=== PATIENT | female | born 1955 | race American Indian/Alaskan Native ===

== ENCOUNTER 2021-02-18 09:56 | Inpatient (IN) | payer MEDICARE, OTHER ==
[2021-02-18] VITALS (18 sets, daily range): BP systolic 90–111; BP diastolic 40–64
[~2021-02-18] VITALS: Ht 162.6 cm; Wt 53.0 kg
[2021-02-18 10:54] LABS: BASOPHILS # (AUTO) 0.1 X10'3 (0-0.2); BASOPHILS % (AUTO) 0.4 % (0-1); EOSINOPHILS # (AUTO) 0.1 X10'3 (0-0.9); EOSINOPHILS % (AUTO) 0.4 % (0-6); HEMOGLOBIN 10.9 g/dl (12.0-16.0); MEAN CORPUSCULAR VOLUME 83.3 FL (78-98); MONOCYTES # (AUTO) 1.2 X10'3 (0-0.9)
[2021-02-18 10:56] LABS: LYMPHOCYTES # (AUTO) 2.8 X10'3 (1.1-4.8); LYMPHOCYTES % (AUTO) 12.9 % (21-51); MEAN CORPUSCULAR HEMOGLOBIN 27.4 PG (27.0-31.0); MEAN CORPUSCULAR HGB CONC 32.9 g/dL (33.0-36.5); MEAN PLATELET VOLUME 6.3 FL (7.4-10.4); MONOCYTES % (AUTO) 5.9 % (2-12); NEUTROPHILS # (AUTO) 17.1 X10'3 (1.8-7.7); NEUTROPHILS % (AUTO) 80.4 % (42-75); PLATELET COUNT 685 X10'3 (140-440); RED BLOOD COUNT 3.97 X10'6 (4.20-5.60); RED CELL DISTRIBUTION WIDTH 14.9 % (11.5-14.5); WHITE BLOOD COUNT 21.3 X10'3 (4.5-11.0)
[2021-02-18 11:13] LABS: ALANINE AMINOTRANSFERASE 25 U/L (12-78); ALBUMIN 2.5 G/DL (3.4-5.0); ALBUMIN/GLOBULIN RATIO 0.4 (1.1-1.5); ALKALINE PHOSPHATASE 88 IU/L (46-116); ANION GAP 10 (8-16); ASPARTATE AMINO TRANSFERASE 17 U/L (10-37); BILIRUBIN,TOTAL 0.5 MG/DL (0.1-1.0); BLOOD UREA NITROGEN 14 MG/DL (7-18); BUN/CREATININE RATIO 13.9 (6.6-38.0); CALCIUM 9.2 MG/DL (8.5-10.1); CHLORIDE 99 MMOL/L (99-107); CREATININE 1.01 MG/DL (0.40-0.90); GLUCOSE 145 MG/DL (70-104); LIPASE 69 U/L (73-393); POTASSIUM 3.2 MMOL/L (3.5-5.1); SODIUM 136 MMOL/L (135-145); TOTAL CARBON DIOXIDE 26.9 MMOL/L (24-32); TOTAL PROTEIN 8.1 G/DL (6.4-8.2); eGFR 55 ML/MIN
[2021-02-18 11:14] LABS: PLATELET ESTIMATE INCREASED; TOTAL CELLS COUNTED 100
[2021-02-18 11:29] LABS: CLARITY,URINE TURBID (Clear); COLOR,URINE ORANGE (Yellow)
[2021-02-18 11:37] LABS: UA COLLECTION TYPE CLN CATCH MIDSTREAM
[2021-02-18 11:40] LABS: BACTERIA,URINE 3+ /HPF (Neg); CAL OXALATE CRYSTALS 1+ /HPF (NEGATIVE); WBC,URINE TNTC /HPF (0-4)
[2021-02-18 11:41] LABS: SQUAMOUS EPITHELIAL CELL,UR MODERATE /LPF (FEW)
[2021-02-18] MEDS ORDERED: iohexol 300mg/ml 100ml inj. ONE (12:22)
[2021-02-18] MEDS ORDERED: ondansetron/PF 4mg/2ml inj IV ONE (12:30)
[2021-02-18] MEDS ORDERED: morphine 4 MG/ML inj SYRINge IV ONE (12:30)
[2021-02-18] MEDS ORDERED: piperacillin/tazo 3.375gm/50ml 50 ML IV ONE (13:35)
[2021-02-18] MEDS ORDERED: normal saline 1000ml 1,000 ML IVB ONE ×2 (13:40)
[2021-02-18] MEDS ORDERED: mag hydrox/Alum hydrox/simeth 30ml oral suspension PO PRN (14:40)
[2021-02-18] MEDS ORDERED: morphine 2 MG/ML inj. syringe IV PRN ×2 (14:40→18:45)
[2021-02-18] MEDS ORDERED: acetaminophen 325mg tablet PO PRN ×2 (14:40)
[2021-02-18] MEDS ORDERED: HYDROcodone/acetaminophen 10/325mg tab PO PRN (14:40)
[2021-02-18] MEDS ORDERED: ondansetron/PF 4mg/2ml inj IV PRN ×2 (14:40→18:45)
[2021-02-18] MEDS ORDERED: HYDROcodone/acetaminophen 5mg/325mg tablet PO PRN (14:40)
[2021-02-18] MEDS ORDERED: magnesium hydroxide 30ml (MOM) UD suspension PO PRN (14:40)
[2021-02-18] MEDS ORDERED: NO HOME MEDS (15:06)
[2021-02-18] MEDS ORDERED: CIPR-259 PO (15:06)
[2021-02-18] MEDS ORDERED: PHEN-716 PO (15:06)
[2021-02-18] MEDS: piperacillin/tazo 4.5gm/100ml 100 ML IV SCH (15:41)
--- NOTE | 2021-02-18 15:51 | NUR ---
covid swab test taken
[2021-02-18] MEDS: normal saline 1000ml 1,000 ML IV SCH (16:18)
[2021-02-18] MEDS ORDERED: BUPIVAcaine 0.5% inj/PF 30 ML ONE (17:28)
[2021-02-18] MEDS ORDERED: LIDOcaine 1% 30ml preserv. free vial ONE (17:28)
[2021-02-18] MEDS ORDERED: rocuronium 10mg/ml inj IV ONE ×2 (17:46→17:48)
[2021-02-18] MEDS ORDERED: fentaNYL/PF 50MCG/1 ML 2ML syringe ONE (17:46)
[2021-02-18] MEDS ORDERED: propofol inj 20 ML IV ONE ×2 (17:46→17:48)
[2021-02-18] MEDS ORDERED: LIDOcaine 2% (20mg/ml) 5ml vial ONE ×2 (17:46→17:48)
[2021-02-18] MEDS ORDERED: midazolam 1 mg/ML 2ml injection ONE (17:47)
[2021-02-18] MEDS ORDERED: sevoflurane 250ml liquid IH ONE (18:00)
[2021-02-18] MEDS ORDERED: dexamethasone sod phosphate 4mg/ml inj. ONE (18:23)
[2021-02-18] MEDS ORDERED: ondansetron/PF 4mg/2ml inj ONE (18:23)
[2021-02-18] MEDS ORDERED: sugammadex 200mg/2ml injection IV ONE (18:23)
--- NOTE | 2021-02-18 18:32 | NUR ---
Received from OR via BED, accompanied by Anesthesiologist DR ROSSI and report given by Anesthesiologist. PT DROWSY, DENIES PAIN, ABDOMEN W/ABD PAD COVERING INCISION PACKED W/WET TO DRY DRSG CDI, ARAGON CATHETER TO GRAVITY DRAINAGE BROWN W/LARGE SEDIMENT IN DRAINAGE BAG. Addendum: 02/18/21 at 1909 by Kimberly Gavin RN Amended: Links added.
[2021-02-18] MEDS ORDERED: ringers solution, lacted 1,000 ML IV SCH (18:45)
[2021-02-18] MEDS ORDERED: meperidine/PF 25mg/ml syringe IV PRN ×3 (18:45)
[2021-02-18] MEDS ORDERED: morphine 4 MG/ML inj SYRINge IV PRN (18:45)
[2021-02-18] MEDS ORDERED: proCHLORperazine 10 MG/2 ml inj IV PRN (18:45)
[2021-02-18] MEDS ORDERED: phenylephrine 10mg/ml inj. ONE (18:54)
[2021-02-18] MEDS: docusate sod 100mg capsule PO SCH (20:00)
--- NOTE | 2021-02-18 20:22 | NUR ---
Report called to receiving nurse. Transferred via BED, 1 BAG OF Belongings SENT W/PT TO ROOM 302, [facility], CALL LIGHT GIVEN, SIDE RAILS UP X 2, RECEIVING RN AT BEDSIDE TO RECEIVE PT. Special Issues communicated to receiving nurse. YES. Addendum: 02/18/21 at 2034 by Kimberly Gavin RN Amended: Links added.
--- NOTE | 2021-02-18 20:28 | NUR ---
RECEIVED PT FROM RECOVERY ON BED. PT AWAKE, COGNIZANT. PLEASANT. NO C/O PAIN.
[2021-02-19] MEDS: piperacillin/tazo 4.5gm/100ml 100 ML IV SCH ×3 (00:32→17:03)
[2021-02-19 02:00] VITALS: BP 90/41
[2021-02-19 06:14] LABS: BASOPHILS % (AUTO) 0.2 % (0-1); EOSINOPHILS % (AUTO) 0 % (0-6); HEMATOCRIT 26.3 % (35.0-45.0); HEMOGLOBIN 8.5 g/dl (12.0-16.0); LYMPHOCYTES # (AUTO) 1.3 X10'3 (1.1-4.8); LYMPHOCYTES % (AUTO) 10.3 % (21-51); MEAN CORPUSCULAR HEMOGLOBIN 27.1 PG (27.0-31.0); MEAN CORPUSCULAR HGB CONC 32.2 g/dL (33.0-36.5); MEAN CORPUSCULAR VOLUME 83.9 FL (78-98); MEAN PLATELET VOLUME 6.6 FL (7.4-10.4); MONOCYTES # (AUTO) 0.4 X10'3 (0-0.9); MONOCYTES % (AUTO) 3.5 % (2-12); NEUTROPHILS # (AUTO) 10.5 X10'3 (1.8-7.7); PLATELET COUNT 471 X10'3 (140-440); RED BLOOD COUNT 3.14 X10'6 (4.20-5.60); RED CELL DISTRIBUTION WIDTH 15.2 % (11.5-14.5); WHITE BLOOD COUNT 12.2 X10'3 (4.5-11.0)
--- NOTE | 2021-02-19 06:20 | NUR ---
Patient in room PCU 3021. I have received report from Tano HUITRON and had the opportunity to ask questions and assume patient care.
[2021-02-19 06:29] LABS: ALBUMIN 2.2 G/DL (3.4-5.0); ANION GAP 8 (8-16); BLOOD UREA NITROGEN 9 MG/DL (7-18); BUN/CREATININE RATIO 12.9 (6.6-38.0); CALCIUM 8.1 MG/DL (8.5-10.1); CHLORIDE 113 MMOL/L (99-107); GLUCOSE 135 MG/DL (70-104); SODIUM 144 MMOL/L (135-145); TOTAL CARBON DIOXIDE 22.8 MMOL/L (24-32); eGFR 84 ML/MIN
[2021-02-19 07:00] VITALS: BP 93/55
[2021-02-19] MEDS: normal saline 1000ml 1,000 ML IV SCH ×3 (07:12→20:40)
[2021-02-19] MEDS: enoxaparin 40mg/0.4ml syringe SQ SCH (07:13)
[2021-02-19] MEDS: morphine 2 MG/ML inj. syringe IV PRN ×2 (07:13→12:37)
[2021-02-19] MEDS: docusate sod 100mg capsule PO SCH ×2 (07:14→20:38)
[2021-02-19 11:00] VITALS: BP 94/49
--- NOTE | 2021-02-19 14:02 | NUR ---
Nutrition consult re: "diverticulitis, with subsequent fistula abscess into bladder". 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 Pt s/p I&D 02/18. Per [facility] notes surgical wound is full thickness with no signs of infection. Pt seen at bedside provided with written and verbal high protein and diverticulitis nutrition therapy educations with a list of fiber content in foods. All of patient's questions were answered at this time. RD contact information provided and pt encouraged to reach out if needed for further questions. Pt endorses a great appetite though reports she is hesitant to eat as she was unsure of what she could eat. RD d/w RN recommendation for diet change to low fiber/low residue. Pt states she drinks boost BID at home. RD provided pt with ONS coupons. Will monitor trends in PO intake and need for ONS during admit. Pt denies food allergies or difficulty chewing/swallowing. Will continue to follow. Recommendations: 1) Diet change to low fiber/low residue 2) Monitor need for additional protein/ONS 3) Bowel care per rx 4) Scaled weight this admit; weekly scaled weights thereafter Addendum: 02/19/21 at [address] Amended: Links added.
[2021-02-19 15:00] VITALS: BP 95/52
[2021-02-19 19:00] VITALS: BP 108/58
[2021-02-19] MEDS: lactobacillus rhamnosus 10,000 MMU CELLS/CAPSULE PO SCH (20:38)
[2021-02-19] MEDS: HYDROcodone/acetaminophen 10/325mg tab PO PRN (20:39)
[2021-02-19 23:00] VITALS: BP 95/54
[2021-02-20 06:00] VITALS: BP 113/55
--- NOTE | 2021-02-20 06:10 | NUR ---
Patient in room PCU 3021. I have received report from Alicia HUITRON and had the opportunity to ask questions and assume patient care.
[2021-02-20 06:28] LABS: BASOPHILS % (AUTO) 0.5 % (0-1); EOSINOPHILS # (AUTO) 0.2 X10'3 (0-0.9); HEMATOCRIT 26.2 % (35.0-45.0); HEMOGLOBIN 8.4 g/dl (12.0-16.0); LYMPHOCYTES # (AUTO) 3.8 X10'3 (1.1-4.8); MEAN CORPUSCULAR HEMOGLOBIN 27.4 PG (27.0-31.0); MEAN CORPUSCULAR HGB CONC 32.1 g/dL (33.0-36.5); MEAN CORPUSCULAR VOLUME 85.4 FL (78-98); MEAN PLATELET VOLUME 6.6 FL (7.4-10.4); MONOCYTES # (AUTO) 0.7 X10'3 (0-0.9); MONOCYTES % (AUTO) 7.2 % (2-12); NEUTROPHILS # (AUTO) 4.4 X10'3 (1.8-7.7); NEUTROPHILS % (AUTO) 48.3 % (42-75); PLATELET COUNT 453 X10'3 (140-440); RED BLOOD COUNT 3.07 X10'6 (4.20-5.60); RED CELL DISTRIBUTION WIDTH 15.2 % (11.5-14.5); WHITE BLOOD COUNT 9.1 X10'3 (4.5-11.0)
--- NOTE | 2021-02-20 06:29 | NUR ---
Problems reprioritized. Patient report given, questions answered & plan of care reviewed with Milad RN and Yesi HUITRON.
--- NOTE | 2021-02-20 06:39 | NUR ---
Patient in room PCU 3021. I have received report from ELIZABETH HUITRON and had the opportunity to ask questions and assume patient care. PT AWAKE DURING RESORT.
[2021-02-20] MEDS: normal saline 1000ml 1,000 ML IV SCH ×2 (06:40→16:27)
[2021-02-20 06:50] LABS: ANION GAP 8 (8-16); BLOOD UREA NITROGEN 13 MG/DL (7-18); BUN/CREATININE RATIO 14.3 (6.6-38.0); CALCIUM 8.3 MG/DL (8.5-10.1); CHLORIDE 113 MMOL/L (99-107); CREATININE 0.91 MG/DL (0.40-0.90); GLUCOSE 89 MG/DL (70-104); SODIUM 145 MMOL/L (135-145); TOTAL CARBON DIOXIDE 24.2 MMOL/L (24-32); eGFR 62 ML/MIN
[2021-02-20] MEDS ORDERED: potassium Cl 20 mEq SR tablet PO PRN (07:00)
[2021-02-20] MEDS ORDERED: magnesium Cl slow-release 64mg tablet PO PRN (07:00)
[2021-02-20] MEDS ORDERED: magnesium 4gm in 100ml NS 100 ML IV PRN (07:00)
[2021-02-20] MEDS ORDERED: potassium Cl 40MEQ/1/2NS 520ml 520 ML IV PRN (07:00)
[2021-02-20] MEDS: docusate sod 100mg capsule PO SCH ×2 (08:03→20:00)
[2021-02-20] MEDS: lactobacillus rhamnosus 10,000 MMU CELLS/CAPSULE PO SCH ×2 (08:03→21:53)
[2021-02-20] MEDS: potassium Cl 20 mEq SR tablet PO PRN ×3 (08:05→21:54)
[2021-02-20] MEDS: enoxaparin 40mg/0.4ml syringe SQ SCH (08:06)
[2021-02-20] MEDS: piperacillin/tazo 4.5gm/100ml 100 ML IV SCH ×3 (08:06→16:24)
[2021-02-20] MEDS: K and/or MAG REPLACEMENT MC SCH ×2 (08:14→20:00)
[2021-02-20 08:15] LABS: MAGNESIUM 2.1 MG/DL (1.5-2.4)
[2021-02-20 11:00] VITALS: BP 114/61
[2021-02-20] MEDS: HYDROcodone/acetaminophen 10/325mg tab PO PRN ×2 (11:44→21:55)
[2021-02-20 15:00] VITALS: BP 118/62
--- NOTE | 2021-02-20 16:20 | NUR ---
paged onielo PAGER ID: [phone] MESSAGE: ROOM 3021 PT has a red rash on the neck, complains of it itching. can we get an order for Benedryl? thank you, Yesi HUITRON [phone]
[2021-02-20] MEDS ORDERED: PEG 3350/Na sulf,bicarb,Cl/KCl oral sol 4 liter bottle PO ONE (17:15)
[2021-02-20] MEDS: diphenhydrAMINE 25mg capsule PO PRN (17:52)
[2021-02-20 18:00] VITALS: BP 137/66
--- NOTE | 2021-02-20 18:18 | NUR ---
Problems reprioritized. Patient report given, questions answered & plan of care reviewed with Yaima HUITRON.
--- NOTE | 2021-02-20 19:07 | NUR ---
Patient in room PCU 3021. I have received report from Yesi HUITRON and had the opportunity to ask questions and assume patient care.
[2021-02-20 22:00] VITALS: BP 124/67
[2021-02-21] VITALS (10 sets, daily range): BP systolic 11–142; BP diastolic 54–83
[2021-02-21] MEDS: piperacillin/tazo 4.5gm/100ml 100 ML IV SCH ×4 (00:41→23:18)
[2021-02-21] MEDS: normal saline 1000ml 1,000 ML IV SCH ×3 (03:27→15:29)
--- NOTE | 2021-02-21 06:05 | NUR ---
Patient in room PCU 3021. I have received report from Yaima HUITRON and had the opportunity to ask questions and assume patient care.
[2021-02-21 06:12] LABS: BASOPHILS % (AUTO) 0.4 % (0-1); EOSINOPHILS # (AUTO) 0.2 X10'3 (0-0.9); HEMATOCRIT 29.4 % (35.0-45.0); HEMOGLOBIN 9.4 g/dl (12.0-16.0); LYMPHOCYTES % (AUTO) 16.8 % (21-51); MEAN CORPUSCULAR HEMOGLOBIN 26.9 PG (27.0-31.0); MEAN PLATELET VOLUME 6.7 FL (7.4-10.4); MONOCYTES # (AUTO) 0.8 X10'3 (0-0.9); MONOCYTES % (AUTO) 6.4 % (2-12); NEUTROPHILS # (AUTO) 8.8 X10'3 (1.8-7.7); NEUTROPHILS % (AUTO) 74.4 % (42-75); PLATELET COUNT 503 X10'3 (140-440); WHITE BLOOD COUNT 11.9 X10'3 (4.5-11.0)
[2021-02-21 06:22] LABS: ALBUMIN 2.2 G/DL (3.4-5.0); ANION GAP 8 (8-16); BLOOD UREA NITROGEN 4 MG/DL (7-18); BUN/CREATININE RATIO 5.6 (6.6-38.0); CALCIUM 8.2 MG/DL (8.5-10.1); CHLORIDE 109 MMOL/L (99-107); CREATININE 0.72 MG/DL (0.40-0.90); GLUCOSE 100 MG/DL (70-104); MAGNESIUM 1.7 MG/DL (1.5-2.4); POTASSIUM 3.7 MMOL/L (3.5-5.1); SODIUM 139 MMOL/L (135-145); TOTAL CARBON DIOXIDE 22.5 MMOL/L (24-32); eGFR 81 ML/MIN
[2021-02-21] MEDS: lactobacillus rhamnosus 10,000 MMU CELLS/CAPSULE PO SCH ×2 (07:02→19:07)
[2021-02-21] MEDS: docusate sod 100mg capsule PO SCH ×2 (08:00→19:13)
[2021-02-21] MEDS: K and/or MAG REPLACEMENT MC SCH ×2 (08:00→19:12)
--- NOTE | 2021-02-21 08:02 | NUR ---
Problems reprioritized. Patient report given, questions answered & plan of care reviewed with Yesi HUITRON.
[2021-02-21] MEDS ORDERED: fentaNYL/PF 50MCG/1 ML 2ML syringe ONE (09:25)
[2021-02-21] MEDS ORDERED: MIDAZolam 1 MG/ML 5ML VIAL ONE (09:25)
--- NOTE | 2021-02-21 10:12 | NUR ---
Malnutrition consult: Pt reports 14-23 lb wt loss with decreased appetite per malnutrition risk screen with RN. During RD bedside visit pt reported 20 lb wt loss since December, stating she weighed ~138 lbs in December with current wt being ~118 lbs. Current documented wt in EMR is 116 lbs however isn't scaled though pt with scaled wt hx of 120 lbs taken 01/25. Pt reports drinking Boost BID at home for additional nutrition and reports a great appetite. Pt currently NPO pending colonoscopy however prior to NPO status pt was eating well, initially with average 50% PO intake while on a regular diet though once diet was appropriately changed to low fiber pt was with 75-100% PO intake. No visible fat or muscle wasting noted during RD visit. Pt with no documented significant decrease in muscle strength or edema. Pt currently lacks a minimum of two criteria for malnutrition. Will continue to follow. Addendum: 02/21/21 at [address] Amended: Links added.
[2021-02-21] MEDS: diphenhydrAMINE 25mg capsule PO PRN (15:20)
[2021-02-21] MEDS: HYDROcodone/acetaminophen 10/325mg tab PO PRN (19:08)
[2021-02-22] MEDS: normal saline 1000ml 1,000 ML IV SCH ×2 (01:00→18:40)
[2021-02-22 02:00] VITALS: BP 103/55
--- NOTE | 2021-02-22 06:30 | NUR ---
Patient in room PCU 3021. I have received report from TOMY Simental and had the opportunity to ask questions and assume patient care.
--- NOTE | 2021-02-22 06:57 | NUR ---
Patient in room PCU 3021. I have received report from Alona HUITRON and had the opportunity to ask questions and assume patient care.
[2021-02-22 07:00] VITALS: BP 115/58
[2021-02-22 07:28] LABS: BASOPHILS # (AUTO) 0.1 X10'3 (0-0.2); BASOPHILS % (AUTO) 0.8 % (0-1); EOSINOPHILS # (AUTO) 0.5 X10'3 (0-0.9); EOSINOPHILS % (AUTO) 4.1 % (0-6); HEMATOCRIT 30.4 % (35.0-45.0); LYMPHOCYTES # (AUTO) 2.8 X10'3 (1.1-4.8); LYMPHOCYTES % (AUTO) 23.6 % (21-51); MEAN CORPUSCULAR HEMOGLOBIN 27.5 PG (27.0-31.0); MEAN CORPUSCULAR HGB CONC 32.9 g/dL (33.0-36.5); MEAN CORPUSCULAR VOLUME 83.7 FL (78-98); MEAN PLATELET VOLUME 6.9 FL (7.4-10.4); MONOCYTES # (AUTO) 0.6 X10'3 (0-0.9); NEUTROPHILS # (AUTO) 7.8 X10'3 (1.8-7.7); NEUTROPHILS % (AUTO) 66.5 % (42-75); PLATELET COUNT 457 X10'3 (140-440); RED BLOOD COUNT 3.63 X10'6 (4.20-5.60); RED CELL DISTRIBUTION WIDTH 14.9 % (11.5-14.5); WHITE BLOOD COUNT 11.8 X10'3 (4.5-11.0)
[2021-02-22 07:45] LABS: ALBUMIN 2.2 G/DL (3.4-5.0); ANION GAP 9 (8-16); BLOOD UREA NITROGEN 3 MG/DL (7-18); BUN/CREATININE RATIO 3.7 (6.6-38.0); CALCIUM 8.7 MG/DL (8.5-10.1); CHLORIDE 112 MMOL/L (99-107); CREATININE 0.81 MG/DL (0.40-0.90); GLUCOSE 89 MG/DL (70-104); MAGNESIUM 2.1 MG/DL (1.5-2.4); POTASSIUM 3.7 MMOL/L (3.5-5.1); SODIUM 145 MMOL/L (135-145); eGFR 71 ML/MIN
[2021-02-22] MEDS: piperacillin/tazo 4.5gm/100ml 100 ML IV SCH ×2 (07:46→15:27)
[2021-02-22] MEDS: lactobacillus rhamnosus 10,000 MMU CELLS/CAPSULE PO SCH ×2 (07:46→20:50)
[2021-02-22] MEDS: docusate sod 100mg capsule PO SCH ×2 (08:00→20:00)
[2021-02-22] MEDS: K and/or MAG REPLACEMENT MC SCH ×2 (08:00→20:00)
[2021-02-22 11:30] VITALS: BP 115/56
--- NOTE | 2021-02-22 12:45 | NUR ---
Spoke with Dr. Guerra regarding patient, she has had a rash and the benadryl is not seeming to help. The rash is present on right side of neck and under left breast. Nystatin and hydrocortisone ordered.
--- NOTE | 2021-02-22 13:04 | NUR ---
PAGER ID: [phone] MESSAGE: [phone] Barney, just had some messi red blood in her stool. Is not on thinners and had a colonoscopy yesterday. olimpia [id number]
[2021-02-22] MEDS: nystatin 15 GM ointment TP SCH ×2 (15:27→20:56)
[2021-02-22] MEDS: HYDROcodone/acetaminophen 5mg/325mg tablet PO PRN ×2 (15:27→20:50)
[2021-02-22] MEDS: hydrocortisone 1% cream 28gm TP SCH ×2 (15:27→21:00)
[2021-02-22 16:12] VITALS: BP 115/60
--- NOTE | 2021-02-22 16:18 | NUR ---
PAGER ID: [phone] MESSAGE: [id number] MONIKA Corley patient has had 2 more episodes of messi red blood in stool, sent page earlier regarding this. olimpia [id number] Addendum: 02/22/21 at 1658 by Olimpia Westfall RN Dr. Guerra gave orders for Q6 hemograms
[2021-02-22 17:05] LABS: HEMATOCRIT 28.4 % (35.0-45.0); HEMOGLOBIN 9.1 g/dl (12.0-16.0); MEAN CORPUSCULAR HEMOGLOBIN 26.9 PG (27.0-31.0); MEAN CORPUSCULAR VOLUME 84.1 FL (78-98); MEAN PLATELET VOLUME 6.8 FL (7.4-10.4); PLATELET COUNT 474 X10'3 (140-440); RED BLOOD COUNT 3.38 X10'6 (4.20-5.60); WHITE BLOOD COUNT 13.5 X10'3 (4.5-11.0)
--- NOTE | 2021-02-22 18:12 | NUR ---
Problems reprioritized. Patient report given, questions answered & plan of care reviewed with Lizett HUITRON.
--- NOTE | 2021-02-22 18:14 | NUR ---
Patient in room PCU 3021. I have received report from TOMY Collier and had the opportunity to ask questions and assume patient care.
[2021-02-22 20:00] VITALS: BP 141/65
[2021-02-22 22:00] VITALS: BP 120/65
[2021-02-22 23:09] LABS: HEMATOCRIT 27.6 % (35.0-45.0); HEMOGLOBIN 9.4 g/dl (12.0-16.0); MEAN CORPUSCULAR HEMOGLOBIN 28.2 PG (27.0-31.0); MEAN CORPUSCULAR HGB CONC 33.9 g/dL (33.0-36.5); MEAN CORPUSCULAR VOLUME 83.3 FL (78-98); MEAN PLATELET VOLUME 6.7 FL (7.4-10.4); PLATELET COUNT 450 X10'3 (140-440); RED BLOOD COUNT 3.32 X10'6 (4.20-5.60); RED CELL DISTRIBUTION WIDTH 14.9 % (11.5-14.5); WHITE BLOOD COUNT 10.4 X10'3 (4.5-11.0)
[2021-02-23] MEDS: piperacillin/tazo 4.5gm/100ml 100 ML IV SCH ×3 (00:09→16:26)
[2021-02-23 02:48] VITALS: BP 134/71
[2021-02-23] MEDS: normal saline 1000ml 1,000 ML IV SCH ×3 (04:40→18:57)
--- NOTE | 2021-02-23 06:10 | NUR ---
Problems reprioritized. Patient report given, questions answered & plan of care reviewed with Aftab RN.
--- NOTE | 2021-02-23 06:34 | NUR ---
Patient in room PCU 3021. I have received report from MY HUITRON and had the opportunity to ask questions and assume patient care.
[2021-02-23 06:50] LABS: BASOPHILS # (AUTO) 0.1 X10'3 (0-0.2); BASOPHILS % (AUTO) 0.9 % (0-1); EOSINOPHILS # (AUTO) 0.5 X10'3 (0-0.9); EOSINOPHILS % (AUTO) 4.6 % (0-6); HEMATOCRIT 32.6 % (35.0-45.0); HEMOGLOBIN 10.5 g/dl (12.0-16.0); LYMPHOCYTES # (AUTO) 2.6 X10'3 (1.1-4.8); MEAN CORPUSCULAR HEMOGLOBIN 27.4 PG (27.0-31.0); MEAN CORPUSCULAR HGB CONC 32.3 g/dL (33.0-36.5); MEAN CORPUSCULAR VOLUME 84.9 FL (78-98); MEAN PLATELET VOLUME 6.9 FL (7.4-10.4); MONOCYTES # (AUTO) 0.6 X10'3 (0-0.9); MONOCYTES % (AUTO) 6.1 % (2-12); NEUTROPHILS # (AUTO) 6.2 X10'3 (1.8-7.7); NEUTROPHILS % (AUTO) 62.4 % (42-75); PLATELET COUNT 517 X10'3 (140-440); RED BLOOD COUNT 3.84 X10'6 (4.20-5.60); RED CELL DISTRIBUTION WIDTH 15.2 % (11.5-14.5); WHITE BLOOD COUNT 9.9 X10'3 (4.5-11.0)
[2021-02-23 06:58] LABS: ALBUMIN 2.4 G/DL (3.4-5.0); ANION GAP 10 (8-16); BLOOD UREA NITROGEN 2 MG/DL (7-18); BUN/CREATININE RATIO 2.5 (6.6-38.0); CALCIUM 8.6 MG/DL (8.5-10.1); CHLORIDE 111 MMOL/L (99-107); GLUCOSE 95 MG/DL (70-104); POTASSIUM 3.3 MMOL/L (3.5-5.1); SODIUM 144 MMOL/L (135-145); TOTAL CARBON DIOXIDE 22.8 MMOL/L (24-32); eGFR 72 ML/MIN
[2021-02-23 07:00] VITALS: BP 133/70
--- NOTE | 2021-02-23 07:07 | NUR ---
Patient in room PCU 3021. I have received report from TOMY Phoenix and had the opportunity to ask questions and assume patient care.
[2021-02-23] MEDS: docusate sod 100mg capsule PO SCH ×2 (08:00→20:00)
[2021-02-23] MEDS: K and/or MAG REPLACEMENT MC SCH ×2 (08:00→20:00)
[2021-02-23] MEDS: hydrocortisone 1% cream 28gm TP SCH ×3 (08:17→22:21)
[2021-02-23] MEDS: nystatin 15 GM ointment TP SCH ×3 (08:20→22:22)
[2021-02-23] MEDS: lactobacillus rhamnosus 10,000 MMU CELLS/CAPSULE PO SCH ×2 (08:20→20:20)
[2021-02-23 10:24] LABS: HEMATOCRIT 29.5 % (35.0-45.0); HEMOGLOBIN 9.3 g/dl (12.0-16.0); MEAN CORPUSCULAR HEMOGLOBIN 26.4 PG (27.0-31.0); MEAN CORPUSCULAR HGB CONC 31.5 g/dL (33.0-36.5); MEAN CORPUSCULAR VOLUME 83.9 FL (78-98); MEAN PLATELET VOLUME 6.8 FL (7.4-10.4); PLATELET COUNT 480 X10'3 (140-440); RED BLOOD COUNT 3.52 X10'6 (4.20-5.60); RED CELL DISTRIBUTION WIDTH 15.3 % (11.5-14.5); WHITE BLOOD COUNT 12.6 X10'3 (4.5-11.0)
[2021-02-23 11:00] VITALS: BP 154/71
[2021-02-23] MEDS ORDERED: potassium Cl 40MEQ/1/2NS 520ml 520 ML IV PRN (11:15)
[2021-02-23] MEDS ORDERED: magnesium Cl slow-release 64mg tablet PO PRN (11:15)
[2021-02-23] MEDS ORDERED: magnesium 4gm in 100ml NS 100 ML IV PRN (11:15)
[2021-02-23] MEDS ORDERED: potassium Cl 20 mEq SR tablet PO PRN (11:15)
[2021-02-23] MEDS: potassium Cl 20 mEq SR tablet PO PRN ×2 (12:13→17:02)
[2021-02-23] MEDS: HYDROcodone/acetaminophen 10/325mg tab PO PRN ×2 (12:16→20:20)
[2021-02-23 15:00] VITALS: BP 119/60
--- NOTE | 2021-02-23 16:03 | NUR ---
Reassessment: Pt regressed to clear liquids 02/21 from prior low-residue diet s/p I&D of cutaneous portions of colovesicular fistula per EMR. PO ~50% avg clears down from initial 75-100% first low-residue meals 02/20. To remain on clear liquids pending possible further surgery per MD note. LBM 02/22 w/ noted messi blood in BM's yesterday per EMR. RD recommends ensure clear given chance of prolonged restrictive diet; MD notified. Will monitor for diet advancement as medically indicated and additional protein needs post-op. Recommendations: 1) Continue clear liquids per MD; encourage PO 2) Advance to low fiber/low residue diet as medically indicated 3) Ensure Clear TIDWM given chance for prolonged clears (apple flavor to avoid red); pending MD verification in EMR 4) Bowel care per rx 5) Scaled weight this admit; weekly scaled weights thereafter Addendum: 02/23/21 at [address] Amended: Links added.
[2021-02-23 16:52] LABS: HEMATOCRIT 29.3 % (35.0-45.0); HEMOGLOBIN 9.3 g/dl (12.0-16.0); MEAN CORPUSCULAR HGB CONC 31.9 g/dL (33.0-36.5); MEAN CORPUSCULAR VOLUME 84.6 FL (78-98); MEAN PLATELET VOLUME 6.7 FL (7.4-10.4); PLATELET COUNT 466 X10'3 (140-440); RED BLOOD COUNT 3.47 X10'6 (4.20-5.60); RED CELL DISTRIBUTION WIDTH 14.9 % (11.5-14.5); WHITE BLOOD COUNT 11.6 X10'3 (4.5-11.0)
--- NOTE | 2021-02-23 17:32 | NUR ---
Problems reprioritized. Patient report given, questions answered & plan of care reviewed with Lizett HUITRON.
[2021-02-23 18:00] VITALS: BP 143/70
--- NOTE | 2021-02-23 18:00 | NUR ---
Patient in room [facility] 344. I have received report from TOMY Leyva and had the opportunity to ask questions and assume patient care.
[2021-02-23] MEDS: diphenhydrAMINE 25mg capsule PO PRN (20:20)
--- NOTE | 2021-02-23 20:26 | NUR ---
Dr. Hall in to see patient. Aware of rash.
[2021-02-23 22:48] LABS: HEMATOCRIT 28.4 % (35.0-45.0); HEMOGLOBIN 9.2 g/dl (12.0-16.0); MEAN CORPUSCULAR HEMOGLOBIN 27.5 PG (27.0-31.0); MEAN CORPUSCULAR HGB CONC 32.3 g/dL (33.0-36.5); MEAN PLATELET VOLUME 6.9 FL (7.4-10.4); PLATELET COUNT 471 X10'3 (140-440); RED BLOOD COUNT 3.35 X10'6 (4.20-5.60); RED CELL DISTRIBUTION WIDTH 15.1 % (11.5-14.5); WHITE BLOOD COUNT 10.5 X10'3 (4.5-11.0)
[2021-02-23 23:20] VITALS: BP 126/60
[2021-02-24] MEDS: piperacillin/tazo 4.5gm/100ml 100 ML IV SCH ×4 (00:50→23:20)
[2021-02-24] MEDS: potassium Cl 20 mEq SR tablet PO PRN (00:50)
[2021-02-24] MEDS: normal saline 1000ml 1,000 ML IV SCH ×3 (04:03→14:44)
[2021-02-24 06:03] LABS: BASOPHILS # (AUTO) 0.1 X10'3 (0-0.2); EOSINOPHILS # (AUTO) 0.5 X10'3 (0-0.9); EOSINOPHILS % (AUTO) 6.3 % (0-6); HEMATOCRIT 28.1 % (35.0-45.0); HEMOGLOBIN 9.1 g/dl (12.0-16.0); LYMPHOCYTES # (AUTO) 2.8 X10'3 (1.1-4.8); LYMPHOCYTES % (AUTO) 33.5 % (21-51); MEAN CORPUSCULAR HEMOGLOBIN 27.3 PG (27.0-31.0); MEAN CORPUSCULAR HGB CONC 32.3 g/dL (33.0-36.5); MEAN CORPUSCULAR VOLUME 84.5 FL (78-98); MONOCYTES # (AUTO) 0.6 X10'3 (0-0.9); MONOCYTES % (AUTO) 6.9 % (2-12); NEUTROPHILS # (AUTO) 4.4 X10'3 (1.8-7.7); NEUTROPHILS % (AUTO) 52.3 % (42-75); PLATELET COUNT 457 X10'3 (140-440); RED BLOOD COUNT 3.32 X10'6 (4.20-5.60); RED CELL DISTRIBUTION WIDTH 15.3 % (11.5-14.5); WHITE BLOOD COUNT 8.4 X10'3 (4.5-11.0)
[2021-02-24 06:11] LABS: ALBUMIN 2.1 G/DL (3.4-5.0); ANION GAP 9 (8-16); BLOOD UREA NITROGEN 2 MG/DL (7-18); BUN/CREATININE RATIO 2.5 (6.6-38.0); CALCIUM 8.4 MG/DL (8.5-10.1); CHLORIDE 113 MMOL/L (99-107); CREATININE 0.79 MG/DL (0.40-0.90); GLUCOSE 90 MG/DL (70-104); POTASSIUM 4.1 MMOL/L (3.5-5.1); SODIUM 145 MMOL/L (135-145); TOTAL CARBON DIOXIDE 23.2 MMOL/L (24-32); eGFR 73 ML/MIN
[2021-02-24 06:12] LABS: PARTIAL THROMBOPLASTIN TIME 26 SECONDS (22-32)
[2021-02-24 06:22] LABS: MAGNESIUM 2.1 MG/DL (1.5-2.4); POTASSIUM 4.1 MMOL/L (3.5-5.1)
[2021-02-24 07:00] VITALS: BP 121/64
[2021-02-24] MEDS: K and/or MAG REPLACEMENT MC SCH ×2 (08:00→18:57)
[2021-02-24] MEDS: NUT.TX.IMPAIRED DIGEST FXN (Ensure Clear) 237 ML PO SCH ×3 (08:00→18:00)
[2021-02-24] MEDS: docusate sod 100mg capsule PO SCH ×2 (08:00→19:36)
[2021-02-24] MEDS: hydrocortisone 1% cream 28gm TP SCH ×3 (08:00→21:00)
[2021-02-24] MEDS: lactobacillus rhamnosus 10,000 MMU CELLS/CAPSULE PO SCH ×2 (08:24→19:36)
[2021-02-24] MEDS: HYDROcodone/acetaminophen 10/325mg tab PO PRN ×2 (08:25→16:39)
[2021-02-24] MEDS: nystatin 15 GM ointment TP SCH (08:32)
[2021-02-24 09:00] VITALS: BP 155/98
[2021-02-24 10:26] LABS: HEMATOCRIT 28.7 % (35.0-45.0); HEMOGLOBIN 9.3 g/dl (12.0-16.0); MEAN CORPUSCULAR HEMOGLOBIN 27.5 PG (27.0-31.0); MEAN CORPUSCULAR HGB CONC 32.3 g/dL (33.0-36.5); MEAN CORPUSCULAR VOLUME 85.2 FL (78-98); MEAN PLATELET VOLUME 6.8 FL (7.4-10.4); PLATELET COUNT 477 X10'3 (140-440); RED BLOOD COUNT 3.36 X10'6 (4.20-5.60); RED CELL DISTRIBUTION WIDTH 15.4 % (11.5-14.5)
[2021-02-24] MEDS: diphenhydrAMINE 25mg capsule PO PRN (10:48)
--- NOTE | 2021-02-24 10:59 | NUR ---
PAGER ID: [phone] MESSAGE: Jyoti-Surg [phone] Re: Barney 344B patient has Q6H H&H and has been holding at 9.3.7 can we DC Q6H H&H no bleeding noted.
[2021-02-24 11:00] VITALS: BP 122/60
[2021-02-24] MEDS: nystatin 15 GM powder TP SCH ×2 (14:17→23:18)
[2021-02-24 18:00] VITALS: BP 134/71
--- NOTE | 2021-02-24 18:45 | NUR ---
Patient in room [facility] 344. I have received report from TOMY Montes and had the opportunity to ask questions and assume patient care.
--- NOTE | 2021-02-24 18:53 | NUR ---
Problems reprioritized. Patient report given, questions answered & plan of care reviewed with Luciana HUITRON.
[2021-02-25] VITALS (28 sets, daily range): BP systolic 103–139; BP diastolic 40–76
[2021-02-25] MEDS: normal saline 1000ml 1,000 ML IV SCH ×3 (01:38→22:24)
--- NOTE | 2021-02-25 06:30 | NUR ---
Problems reprioritized. Patient report given, questions answered & plan of care reviewed with TOMY Newberry.
[2021-02-25] MEDS: docusate sod 100mg capsule PO SCH ×2 (06:53→20:00)
[2021-02-25] MEDS: K and/or MAG REPLACEMENT MC SCH ×2 (06:53→21:00)
[2021-02-25] MEDS: hydrocortisone 1% cream 28gm TP SCH ×3 (08:00→21:00)
[2021-02-25] MEDS: NUT.TX.IMPAIRED DIGEST FXN (Ensure Clear) 237 ML PO SCH ×3 (08:00→18:00)
[2021-02-25] MEDS: lactobacillus rhamnosus 10,000 MMU CELLS/CAPSULE PO SCH ×2 (08:34→20:00)
[2021-02-25] MEDS: piperacillin/tazo 4.5gm/100ml 100 ML IV SCH ×2 (08:34→16:00)
[2021-02-25] MEDS: nystatin 15 GM powder TP SCH ×3 (08:35→22:27)
[2021-02-25] MEDS: HYDROcodone/acetaminophen 10/325mg tab PO PRN (08:35)
[2021-02-25 09:57] LABS: BASOPHILS # (AUTO) 0.1 X10'3 (0-0.2); BASOPHILS % (AUTO) 0.9 % (0-1); EOSINOPHILS # (AUTO) 0.4 X10'3 (0-0.9); EOSINOPHILS % (AUTO) 3.5 % (0-6); HEMATOCRIT 29.4 % (35.0-45.0); HEMOGLOBIN 9.6 g/dl (12.0-16.0); LYMPHOCYTES # (AUTO) 3.1 X10'3 (1.1-4.8); LYMPHOCYTES % (AUTO) 27.6 % (21-51); MEAN CORPUSCULAR HEMOGLOBIN 27.5 PG (27.0-31.0); MEAN CORPUSCULAR HGB CONC 32.7 g/dL (33.0-36.5); MEAN CORPUSCULAR VOLUME 84.2 FL (78-98); MEAN PLATELET VOLUME 6.7 FL (7.4-10.4); MONOCYTES # (AUTO) 0.8 X10'3 (0-0.9); MONOCYTES % (AUTO) 7.7 % (2-12); NEUTROPHILS # (AUTO) 6.7 X10'3 (1.8-7.7); NEUTROPHILS % (AUTO) 60.3 % (42-75); PLATELET COUNT 489 X10'3 (140-440); RED BLOOD COUNT 3.49 X10'6 (4.20-5.60); RED CELL DISTRIBUTION WIDTH 15.6 % (11.5-14.5); WHITE BLOOD COUNT 11.1 X10'3 (4.5-11.0)
[2021-02-25 10:15] LABS: ALBUMIN 2.3 G/DL (3.4-5.0); ALBUMIN/GLOBULIN RATIO 0.6 (1.1-1.5); ALKALINE PHOSPHATASE 75 IU/L (46-116); BLOOD UREA NITROGEN 2 MG/DL (7-18); BUN/CREATININE RATIO 2.2 (6.6-38.0); CALCIUM 8.2 MG/DL (8.5-10.1); CHLORIDE 110 MMOL/L (99-107); CREATININE 0.89 MG/DL (0.40-0.90); PRE OP ALT 24 U/L (30-65); PRE OP ANION GAP 12 (8-16); PRE OP AST 17 U/L (10-37); PRE OP BILIRUB, TOTAL 0.3 MG/DL (0.0-1.0); PRE OP GLUCOSE 125 MG/DL (70-104); PRE OP POTASSIUM 3.5 MMOL/L (3.4-5.1); PRE OP SODIUM 144 MMOL/L (135-145); TOTAL CARBON DIOXIDE 22.4 MMOL/L (24-32); TOTAL PROTEIN 6.1 G/DL (6.4-8.2); eGFR 64 ML/MIN
[2021-02-25] MEDS ORDERED: LIDOcaine 1% 30ml preserv. free vial ONE (11:44)
[2021-02-25] MEDS ORDERED: INDOCYANINE GREEN 25 MG/10 ML VIAL IV ONE (11:45)
[2021-02-25] MEDS ORDERED: BUPIVAcaine 0.5% inj/PF 30 ML ONE (11:46)
--- NOTE | 2021-02-25 11:59 | NUR ---
Called report to recovery. OR taking pt. now.
[2021-02-25] MEDS ORDERED: sevoflurane 250ml liquid IH ONE (12:22)
[2021-02-25] MEDS ORDERED: proCHLORperazine 10 MG/2 ml inj IV PRN (12:25)
[2021-02-25] MEDS ORDERED: morphine 4 MG/ML inj SYRINge IV PRN (12:25)
[2021-02-25] MEDS ORDERED: meperidine/PF 25mg/ml syringe IV PRN ×2 (12:25)
[2021-02-25] MEDS ORDERED: ringers solution, lacted 1,000 ML IV SCH (12:25)
[2021-02-25] MEDS ORDERED: morphine 2 MG/ML inj. syringe IV PRN (12:25)
[2021-02-25] MEDS ORDERED: ondansetron/PF 4mg/2ml inj IV PRN (12:25)
[2021-02-25] MEDS ORDERED: midazolam 1 mg/ML 2ml injection ONE (12:30)
[2021-02-25] MEDS ORDERED: fentaNYL /PF 50mcg/ml 5ml ampule ONE (12:31)
[2021-02-25] MEDS ORDERED: propofol inj 20 ML IV ONE (12:37)
[2021-02-25] MEDS ORDERED: LIDOcaine 2% (20mg/ml) 5ml vial ONE (12:37)
[2021-02-25] MEDS ORDERED: rocuronium 10mg/ml inj IV ONE ×2 (12:37→16:52)
[2021-02-25] MEDS ORDERED: dexamethasone sod phosphate 4mg/ml inj. ONE (12:38)
[2021-02-25] MEDS ORDERED: ondansetron/PF 4mg/2ml inj ONE (12:38)
[2021-02-25] MEDS ORDERED: morphine 4 MG/ML inj SYRINge ONE (15:59)
--- NOTE | 2021-02-25 16:37 | NUR ---
When calling in report to recovery, asked RN if I needed to send 1600 Zosyn dose with pt. RN replied "No. I don't think she will be down here that long." Pt. was taken to OR approximately at 12 from this floor. Just called recovery again as I have not received report on pt. Pt. is apparently still in the OR and recovery refused for primary RN to deliver IV ATB stating" That pt. isn't even here yet. They are in the OR and we can not give meds while they are in the OR. I would non-admin it if I were you." Pharmacist notified.
[2021-02-25] MEDS ORDERED: neostigmine methylsulfate 1 MG/ML 10ml vial ONE (17:00)
[2021-02-25] MEDS ORDERED: glycopyrrolate 0.2mg/ml inj ONE (17:00)
--- NOTE | 2021-02-25 17:20 | NUR ---
PT ARRIVED FROM OR VIA BED, DR HOGUE ANESTHESIOLOGIST ACCOMPANIED, REPORT GIVEN, PT WAKING UP, VSS, DENIES PAIN, 22G TO RLE-LR RUNNING 100ML/HR, F/C PRESENT-PLACED PRIOR TO SURGERY, DRAINING CLEAR YELLOW URINE, SCDS IN PLACE, BANDAIDS X 3 TO ABD-CDI, AND WOUND VAC TO LOWER MID ABD@125MMHG
[2021-02-25] MEDS: meperidine/PF 25mg/ml syringe IV PRN ×2 (17:47→18:19)
--- NOTE | 2021-02-25 18:15 | NUR ---
Gave report to Antoinette Curry RN.
[2021-02-25] MEDS ORDERED: acetaminophen 1,000mg/100ml IV 100 ML IV STA (18:23)
--- NOTE | 2021-02-25 18:30 | NUR ---
I have received report from CLAUDE HUITRON and had the opportunity to ask questions. PATIENT IN OR/ RECOVERY AT THIS TIME FOR SURGERY.
[2021-02-25] MEDS ORDERED: CADD PCA waste documentation MC SCH (18:50)
[2021-02-25] MEDS: ketorolac tromethamine 15mg/ml inj. IV SCH (18:55)
--- NOTE | 2021-02-25 18:55 | NUR ---
GIVEN IV TYLENOL AND 15MG IV TORADOL FOR CONT. INCISION PAIN 02/17 ATTEMPTING NON-NARCOTIC D/T TRENDING LOW BP AFTER DEMEROL.
[2021-02-25] MEDS ORDERED: morphine/NS 1 mg/ml 50ml CADD 50 ML IV SCH ×2 (19:30→21:50)
--- NOTE | 2021-02-25 20:05 | NUR ---
MORPHINE COMPUTATIONAL SCIENTIST CADD STARTED-PT EDUCATED, PAIN STILL TOLERABLE AT 5/10, VSS, DENIES N/V, LAP SITES X4 CDI, WOUND VAC-INTACT AT 125MMHG, F/C DRAINING, SCDS IN PLACE, REPORT CALLED TO EFRNANDEZ RN-ALL QUESTIONS ANSWERED, TAKEN BACK TO ROOM 344B, IN ROOM WITH PRIMARY RN TO ACCEPT PT, CALL LIGHT IN REACH, BED LOW AND LOCKED.
--- NOTE | 2021-02-25 20:20 | NUR ---
PATIENT BACK TO ROOM 344B FROM RECOVERY ROOM AFTER ROBOTIC LAP ASSISTED SIGMOID COLECTOMY WAS DONE BY DR. YAP. PLACED COMFORTABLE IN BED. VITAL SIGNS MONITORED PER POST OP PROTOCOL.
[2021-02-25] MEDS ORDERED: CADD PCA waste documentation MC PRN (21:50)
[2021-02-25] MEDS ORDERED: naloxone 0.4 mg/ml inj IV PRN (21:50)
[2021-02-25] MEDS: acetaminophen 325mg tablet PO SCH (22:18)
[2021-02-25] MEDS: morphine/NS 1 mg/ml 50ml CADD 50 ML IV SCH (23:00)
[2021-02-26] VITALS: BP_SYST 111; BP_SYST 97; BP_DIAS 51; BP_DIAS 52
[2021-02-26] MEDS: morphine/NS 1 mg/ml 50ml CADD 50 ML IV SCH ×12 (01:00→23:00)
[2021-02-26] MEDS: ketorolac tromethamine 15mg/ml inj. IV SCH ×3 (01:11→16:01)
[2021-02-26] MEDS: piperacillin/tazo 4.5gm/100ml 100 ML IV SCH ×3 (01:11→16:00)
[2021-02-26] MEDS: acetaminophen 325mg tablet PO SCH ×4 (02:00→20:32)
--- NOTE | 2021-02-26 06:30 | NUR ---
Problems reprioritized. Patient report given, questions answered & plan of care reviewed with DONALDO HUITRON.
[2021-02-26 07:00] VITALS: BP 97/51
[2021-02-26] MEDS: K and/or MAG REPLACEMENT MC SCH ×2 (08:00→20:00)
[2021-02-26] MEDS: NUT.TX.IMPAIRED DIGEST FXN (Ensure Clear) 237 ML PO SCH ×3 (08:00→19:00)
[2021-02-26] MEDS: hydrocortisone 1% cream 28gm TP SCH ×3 (08:00→20:38)
--- NOTE | 2021-02-26 08:14 | NUR ---
f/u 02/26. Pt s/p laparoscopic sigmoid colectomy 02/25. Pt was consuming about 50% of clear liquid diet prior to surgery and is currently on Clear liquids today. Ensure Clear verified in EMR though pt not receiving. Notified dietary to send ONS per rx. No N/V/D noted, LBM 02/25. Pt w/ surgical wounds on abdomen. Will continue to monitor for diet advancement as medically indicated. Recommendations: 1) Continue clear liquids per MD; encourage PO 2) Advance to low fiber/low residue diet as medically indicated 3) Ensure Clear TIDWM given chance for prolonged clears (apple flavor to avoid red) 4) Bowel care per rx 5) Scaled weight this admit; weekly scaled weights thereafter Addendum: 02/26/21 at [address] Amended: Links added.
[2021-02-26] MEDS: normal saline 1000ml 1,000 ML IV SCH ×2 (08:39→20:33)
[2021-02-26 08:52] LABS: BASOPHILS # (AUTO) 0.1 X10'3 (0-0.2); BASOPHILS % (AUTO) 0.6 % (0-1); EOSINOPHILS # (AUTO) 0.1 X10'3 (0-0.9); EOSINOPHILS % (AUTO) 0.7 % (0-6); HEMATOCRIT 30.6 % (35.0-45.0); HEMOGLOBIN 9.7 g/dl (12.0-16.0); LYMPHOCYTES # (AUTO) 3.4 X10'3 (1.1-4.8); LYMPHOCYTES % (AUTO) 24.2 % (21-51); MEAN CORPUSCULAR HEMOGLOBIN 27.7 PG (27.0-31.0); MEAN CORPUSCULAR HGB CONC 31.6 g/dL (33.0-36.5); MEAN CORPUSCULAR VOLUME 87.5 FL (78-98); MEAN PLATELET VOLUME 7.1 FL (7.4-10.4); MONOCYTES # (AUTO) 1.3 X10'3 (0-0.9); MONOCYTES % (AUTO) 9.2 % (2-12); NEUTROPHILS # (AUTO) 9.3 X10'3 (1.8-7.7); NEUTROPHILS % (AUTO) 65.3 % (42-75); PLATELET COUNT 450 X10'3 (140-440); RED CELL DISTRIBUTION WIDTH 16.6 % (11.5-14.5); WHITE BLOOD COUNT 14.2 X10'3 (4.5-11.0)
[2021-02-26] MEDS: lactobacillus rhamnosus 10,000 MMU CELLS/CAPSULE PO SCH ×2 (08:53→20:32)
[2021-02-26] MEDS: docusate sod 100mg capsule PO SCH ×2 (08:53→20:32)
[2021-02-26] MEDS: nystatin 15 GM powder TP SCH ×3 (08:54→20:36)
[2021-02-26 08:59] LABS: ALBUMIN 2.2 G/DL (3.4-5.0); ANION GAP 10 (8-16); BLOOD UREA NITROGEN 5 MG/DL (7-18); CALCIUM 8.4 MG/DL (8.5-10.1); CHLORIDE 111 MMOL/L (99-107); CREATININE 0.84 MG/DL (0.40-0.90); GLUCOSE 95 MG/DL (70-104); POTASSIUM 3.8 MMOL/L (3.5-5.1); SODIUM 145 MMOL/L (135-145); TOTAL CARBON DIOXIDE 23.7 MMOL/L (24-32); eGFR 68 ML/MIN
[2021-02-26 11:00] VITALS: BP 99/51
--- NOTE | 2021-02-26 18:24 | NUR ---
Problems reprioritized. Patient report given, questions answered & plan of care reviewed with TOMY Emmanuel.
[2021-02-26 20:00] VITALS: BP 121/60
[2021-02-27] VITALS: BP 158/82
[2021-02-27] MEDS: ketorolac tromethamine 15mg/ml inj. IV SCH ×4 (00:21→23:49)
[2021-02-27] MEDS: piperacillin/tazo 4.5gm/100ml 100 ML IV SCH ×4 (00:24→23:49)
[2021-02-27] MEDS: morphine/NS 1 mg/ml 50ml CADD 50 ML IV SCH ×12 (01:00→23:00)
[2021-02-27] MEDS: acetaminophen 325mg tablet PO SCH ×4 (02:00→20:49)
[2021-02-27 04:00] VITALS: BP 158/86
[2021-02-27 04:53] VITALS: BP 121/60
[2021-02-27] MEDS: normal saline 1000ml 1,000 ML IV SCH ×2 (06:11→16:42)
--- NOTE | 2021-02-27 06:30 | NUR ---
Problems reprioritized. Patient report given, questions answered & plan of care reviewed with DONALDO HUITRON.
--- NOTE | 2021-02-27 06:44 | NUR ---
Patient in room [facility] 344. I have received report from TOMY Emmanuel and had the opportunity to ask questions and assume patient care.
[2021-02-27 07:00] VITALS: BP 118/67
[2021-02-27] MEDS: docusate sod 100mg capsule PO SCH ×2 (07:55→20:00)
[2021-02-27] MEDS: lactobacillus rhamnosus 10,000 MMU CELLS/CAPSULE PO SCH ×2 (07:55→20:48)
[2021-02-27] MEDS: K and/or MAG REPLACEMENT MC SCH ×2 (08:00→20:00)
[2021-02-27] MEDS: NUT.TX.IMPAIRED DIGEST FXN (Ensure Clear) 237 ML PO SCH ×3 (08:00→18:00)
[2021-02-27] MEDS: hydrocortisone 1% cream 28gm TP SCH ×3 (08:00→20:50)
[2021-02-27] MEDS: nystatin 15 GM powder TP SCH ×3 (08:05→20:49)
[2021-02-27 11:00] VITALS: BP 128/61
[2021-02-27 18:00] VITALS: BP 145/54
--- NOTE | 2021-02-27 18:27 | NUR ---
Problems reprioritized. Patient report given, questions answered & plan of care reviewed with TOMY Piper.
--- NOTE | 2021-02-27 22:41 | NUR ---
Patient in room [facility] 344. I have received report from Sandra HUITRON and had the opportunity to ask questions and assume patient care.
[2021-02-28] VITALS: BP 122/64
[2021-02-28] MEDS: morphine/NS 1 mg/ml 50ml CADD 50 ML IV SCH ×6 (01:00→11:00)
[2021-02-28] MEDS: acetaminophen 325mg tablet PO SCH ×2 (02:00→08:02)
[2021-02-28] MEDS: normal saline 1000ml 1,000 ML IV SCH ×2 (04:40→10:49)
--- NOTE | 2021-02-28 06:28 | NUR ---
Problems reprioritized. Patient report given, questions answered & plan of care reviewed with Coni HUITRON.
[2021-02-28 07:00] VITALS: BP 138/66
[2021-02-28] MEDS: NUT.TX.IMPAIRED DIGEST FXN (Ensure Clear) 237 ML PO SCH (08:00)
[2021-02-28] MEDS: hydrocortisone 1% cream 28gm TP SCH ×3 (08:00→19:32)
[2021-02-28] MEDS: docusate sod 100mg capsule PO SCH (08:00)
[2021-02-28] MEDS: K and/or MAG REPLACEMENT MC SCH ×2 (08:00→19:16)
[2021-02-28] MEDS: piperacillin/tazo 4.5gm/100ml 100 ML IV SCH ×2 (08:02→16:58)
[2021-02-28] MEDS: lactobacillus rhamnosus 10,000 MMU CELLS/CAPSULE PO SCH ×2 (08:02→19:28)
[2021-02-28] MEDS: ketorolac tromethamine 15mg/ml inj. IV SCH (08:02)
[2021-02-28] MEDS: nystatin 15 GM powder TP SCH ×3 (08:04→19:31)
[2021-02-28 11:00] VITALS: BP 137/68
[2021-02-28] MEDS: HYDROcodone/acetaminophen 5mg/325mg tablet PO PRN (14:39)
[2021-02-28] MEDS ORDERED: CADD PCA waste documentation MC SCH (14:50)
--- NOTE | 2021-02-28 18:32 | NUR ---
Gave report to Antoinette Curry RN.
--- NOTE | 2021-02-28 18:35 | NUR ---
Patient in room [facility] 344. I have received report from CLAUDE HUITRON and had the opportunity to ask questions and assume patient care.
[2021-02-28 19:00] VITALS: BP 146/71
[2021-02-28] MEDS: HYDROcodone/acetaminophen 10/325mg tab PO PRN (19:28)
[2021-03-01] VITALS: BP 131/67
[2021-03-01] MEDS: piperacillin/tazo 4.5gm/100ml 100 ML IV SCH ×4 (00:22→23:30)
--- NOTE | 2021-03-01 06:30 | NUR ---
Problems reprioritized. Patient report given, questions answered & plan of care reviewed with JESSE HUITRON.
--- NOTE | 2021-03-01 06:35 | NUR ---
Patient in room [facility] 344. I have received report from Antoinette Curry RN and had the opportunity to ask questions and assume patient care.
[2021-03-01 07:24] VITALS: BP 148/73
[2021-03-01] MEDS: K and/or MAG REPLACEMENT MC SCH ×2 (08:00→20:00)
[2021-03-01] MEDS: hydrocortisone 1% cream 28gm TP SCH ×3 (08:00→20:11)
[2021-03-01] MEDS: lactobacillus rhamnosus 10,000 MMU CELLS/CAPSULE PO SCH ×2 (08:22→20:02)
[2021-03-01] MEDS: nystatin 15 GM powder TP SCH ×3 (08:23→20:20)
--- NOTE | 2021-03-01 10:53 | NUR ---
f/u 03/01. Pt s/p laparoscopic sigmoid colectomy 02/25. Pt advanced to Regular diet 02/28, eating about 50% of meals meeting needs. Discussed w/ RN about placing pt on low fiber/residue diet given her recent procedure if MD agreeable. No N/V/D noted, LBM . Pt w/ surgical wounds on abdomen. Will continue to monitor PO trends and need for additional energy or protein. Recommendations: 1) Low fiber/low residue diet as medically indicated 2) Bowel care per rx 3) Scaled weight this admit; weekly scaled weights thereafter Addendum: 03/01/21 at [address] Amended: Links added.
[2021-03-01 11:00] VITALS: BP 144/63
[2021-03-01] MEDS: HYDROcodone/acetaminophen 10/325mg tab PO PRN ×3 (12:07→20:09)
[2021-03-01] MEDS ORDERED: magnesium hydroxide 30ml (MOM) UD suspension PO ONE (13:40)
--- NOTE | 2021-03-01 18:41 | NUR ---
Patient in room [facility] 344. I have received report from TOMY Parker and had the opportunity to ask questions and assume patient care.
[2021-03-01 19:00] VITALS: BP 149/68
--- NOTE | 2021-03-01 19:04 | NUR ---
Problems reprioritized. Patient report given, questions answered & plan of care reviewed with Luciana HUITRON.
[2021-03-01] MEDS: enoxaparin 40mg/0.4ml syringe SUBCUT SCH (20:04)
[2021-03-02] VITALS: BP 146/67
--- NOTE | 2021-03-02 06:08 | NUR ---
Patient in room [facility] 344. I have received report from Luciana HUITRON and had the opportunity to ask questions and assume patient care.
--- NOTE | 2021-03-02 06:09 | NUR ---
Problems reprioritized. Patient report given, questions answered & plan of care reviewed with TOMY Parker.
[2021-03-02 08:00] VITALS: BP 151/65
[2021-03-02] MEDS: nystatin 15 GM powder TP SCH ×4 (08:00→23:35)
[2021-03-02] MEDS: lactobacillus rhamnosus 10,000 MMU CELLS/CAPSULE PO SCH ×2 (08:00→19:28)
[2021-03-02] MEDS: piperacillin/tazo 4.5gm/100ml 100 ML IV SCH ×2 (08:00→16:55)
[2021-03-02] MEDS: hydrocortisone 1% cream 28gm TP SCH ×3 (08:00→19:37)
[2021-03-02] MEDS: K and/or MAG REPLACEMENT MC SCH ×2 (08:00→20:00)
[2021-03-02] MEDS: HYDROcodone/acetaminophen 10/325mg tab PO PRN ×3 (08:01→19:28)
[2021-03-02 11:00] VITALS: BP 126/56
--- NOTE | 2021-03-02 14:32 | NUR ---
WOUND VAC EDUCATION PROVIDED BY WOUND CARE 1. Patient instructed to call the Wound Center or their Home Health Agency immediately if: * They notice a change in the color or amount of the fluid in the canister. * Their wound looks more red than usual or has a foul smell. * The skin around their wound looks reddened or irritated. * The dressing feels loose or appears to be loose. * They experience any increase or changes in their pain. * The alarm will not turn off. 2. Patient instructed that they should not be disconnected from suction for more than 2 hours at a time. * If they are not able to get the suction back on, they need to remove the dressing and take all of the foam out of the wound. * Then moisten sterile gauze with normal saline and place on/in the wound. * Change the dressing once a day until arrangements have been made to replace the wound vac dressing. 3. Patient instructed to turn the wound vac machine OFF and call 911 or go to the ED immediately if their canister fills rapidly with blood. 4. If any of these occur while in the hospital tell a nurse immediately. Addendum: 03/02/21 at 1432 by Afua Raines RN Amended: Links added.
[2021-03-02 18:00] VITALS: BP 168/72
--- NOTE | 2021-03-02 18:10 | NUR ---
Problems reprioritized. Patient report given, questions answered & plan of care reviewed with stevie HUITRON.
--- NOTE | 2021-03-02 18:31 | NUR ---
Patient in room [facility] 344. I have received report from TOMY Parker and had the opportunity to ask questions and assume patient care.
[2021-03-02] MEDS: enoxaparin 40mg/0.4ml syringe SUBCUT SCH (19:27)
[2021-03-02] MEDS ORDERED: magnesium hydroxide 30ml (MOM) UD suspension PO SCH (20:00)
--- NOTE | 2021-03-02 23:31 | NUR ---
Problems reprioritized. Patient report given, questions answered & plan of care reviewed with TOMY Hodges.
--- NOTE | 2021-03-02 23:38 | NUR ---
Patient in room [facility] 344. I have received report from CARLOS HUITRON and had the opportunity to ask questions and assume patient care.
[2021-03-03] VITALS: BP 123/62
[2021-03-03] MEDS: piperacillin/tazo 4.5gm/100ml 100 ML IV SCH ×2 (00:13→07:12)
--- NOTE | 2021-03-03 06:26 | NUR ---
Problems reprioritized. Patient report given, questions answered & plan of care reviewed with JESSE HUITRON.
--- NOTE | 2021-03-03 06:36 | NUR ---
Patient in room [facility] 344. I have received report from Antoinette Curry RN and had the opportunity to ask questions and assume patient care.
[2021-03-03] MEDS: HYDROcodone/acetaminophen 10/325mg tab PO PRN (07:11)
[2021-03-03] MEDS: lactobacillus rhamnosus 10,000 MMU CELLS/CAPSULE PO SCH (07:11)
[2021-03-03 08:00] VITALS: BP 135/78
[2021-03-03 11:00] VITALS: BP 145/66
[2021-03-03] MEDS ORDERED: LACT1CAP26 PO (12:09)
--- NOTE | 2021-03-03 14:45 | NUR ---
Pt is D to home. Pt is going home with and HH care was in place. Pt is A & O x4 and in no apparent distress. pt and verbalize understanding of all DC orders. Both were taught hpw to trouble shoot and maintain a working woundvac. pt given supplies to maintain and change compartment on [place] if it becomes too full. Pt also given a follow up appointment with wound care. pt able to teach back care of her Snyder and how to maintain it clean. supplies given to pt and explained how to empty and clean meatus. Pt decided to go home with hospital gown instead of getting dress. pt packed all of her belongings with her and she was wheeled to the front where he took her home. pt also got pain meds from Dr frost's office, called into [facility].
[2021-03-03] MEDS ORDERED: piperacillin/tazo 3.375gm/50ml 50 ML IV SCH (16:00)
== END 2021-03-03 14:45 | disposition home health service (06) | DRG 853 ==
LOC: ER 09:57 → ED HOLD 14:42 → PCU 3S 20:30 → SUR 3N 02-23 17:43
PROVIDERS: ADMIT Internal Medicine; ATTEND Internal Medicine
PROC: 0W9F0ZZ Drainage of Abdominal Wall, Open Approach (ICD-10-PCS; 2021-02-18)
PROC: 0WBF0ZX Excision of Abdominal Wall, Open Approach, Diagnostic (ICD-10-PCS; 2021-02-18)
PROC: BW211ZZ Computerized Tomography (CT Scan) of Abdomen and Pelvis using Low Osmolar Contrast (ICD-10-PCS; 2021-02-18)
PROC: 0DJD8ZZ Inspection of Lower Intestinal Tract, Via Natural or Artificial Opening Endoscopic (ICD-10-PCS; 2021-02-21)
PROC: 0DBM8ZZ Excision of Descending Colon, Via Natural or Artificial Opening Endoscopic (ICD-10-PCS; 2021-02-21)
PROC: 0DNU4ZZ Release Omentum, Percutaneous Endoscopic Approach (ICD-10-PCS; 2021-02-25)
PROC: 0DN84ZZ Release Small Intestine, Percutaneous Endoscopic Approach (ICD-10-PCS; 2021-02-25)
PROC: 8E0W4CZ Robotic Assisted Procedure of Trunk Region, Percutaneous Endoscopic Approach (ICD-10-PCS; 2021-02-25)
PROC: 0DBN4ZZ Excision of Sigmoid Colon, Percutaneous Endoscopic Approach (ICD-10-PCS; principal; 2021-02-25 12:22)
DX: A41.9 Sepsis, unspecified organism (principal); K65.9 Peritonitis, unspecified; N39.0 Urinary tract infection, site not specified; K57.20 Diverticulitis of large intestine with perforation and abscess without bleeding; N32.1 Vesicointestinal fistula; K56.699 Other intestinal obstruction unspecified as to partial versus complete obstruction; K63.2 Fistula of intestine; K62.5 Hemorrhage of anus and rectum; D64.9 Anemia, unspecified; R30.9 Painful micturition, unspecified; Z20.822 Contact with and (suspected) exposure to COVID-19; K57.30 Diverticulosis of large intestine without perforation or abscess without bleeding; K64.8 Other hemorrhoids; R63.4 Abnormal weight loss; F17.210 Nicotine dependence, cigarettes, uncomplicated; K59.00 Constipation, unspecified; K66.0 Peritoneal adhesions (postprocedural) (postinfection); Z98.2 Presence of cerebrospinal fluid drainage device; Z68.20 Body mass index [BMI] 20.0-20.9, adult; Z88.8 Allergy status to other drugs, medicaments and biological substances; Z56.0 Unemployment, unspecified; Z79.899 Other long term (current) drug therapy
CPT/HCPCS: 36415; 45385; 71045; 74177; 80048; 80053; 81001; 82378; 82948; 83605; 83690; 83735; 83880; 84132; 84145; 85007; 85025; 85027; 85610; 85730; 86140; 86885; 86900; 86901; 87040; 87088; 87635; 93005; 96374; 96375; 97116; 97161; 97530; 97535; 99152; 99153; 99285; A4215; A4618; A4620; A6253; A6446; A6550; A7000; C1773; C9399; G0378; J0131; J1100; J1650; J1885; J2001; J2175; J2250; J2270; J2370; J2405; J2543; J2704; J2710; J3010; J3490; J7030; Q0163; Q9967

== ENCOUNTER 2021-07-09 05:21 | Day surgery (SDC) | payer MEDICARE, OTHER ==
[2021-07-06 10:36] LABS: ALBUMIN 3.7 G/DL (3.4-5.0); ALBUMIN/GLOBULIN RATIO 0.9 (1.1-1.5); ALKALINE PHOSPHATASE 84 IU/L (46-116); BLOOD UREA NITROGEN 17 MG/DL (7-18); BUN/CREATININE RATIO 17.9 (6.6-38.0); CALCIUM 9.6 MG/DL (8.5-10.1); CHLORIDE 105 MMOL/L (99-107); CREATININE 0.95 MG/DL (0.40-0.90); PRE OP ALT 29 U/L (30-65); PRE OP ANION GAP 10 (8-16); PRE OP AST 25 U/L (10-37); PRE OP BILIRUB, TOTAL 0.3 MG/DL (0.0-1.0); PRE OP GLUCOSE 101 MG/DL (70-104); PRE OP POTASSIUM 4.2 MMOL/L (3.4-5.1); PRE OP SODIUM 142 MMOL/L (135-145); TOTAL CARBON DIOXIDE 27.4 MMOL/L (24-32); TOTAL PROTEIN 7.6 G/DL (6.4-8.2); eGFR 59 ML/MIN
[2021-07-06 10:41] LABS: BASOPHILS # (AUTO) 0.1 X10'3 (0-0.2); BASOPHILS % (AUTO) 0.6 % (0-1); EOSINOPHILS # (AUTO) 0.3 X10'3 (0-0.9); EOSINOPHILS % (AUTO) 3.3 % (0-6); LYMPHOCYTES # (AUTO) 4.4 X10'3 (1.1-4.8); LYMPHOCYTES % (AUTO) 49.2 % (21-51); MEAN CORPUSCULAR HEMOGLOBIN 27.7 PG (27.0-31.0); MEAN CORPUSCULAR HGB CONC 32.7 g/dL (33.0-36.5); MEAN CORPUSCULAR VOLUME 84.7 FL (78-98); MEAN PLATELET VOLUME 7.4 FL (7.4-10.4); MONOCYTES # (AUTO) 0.6 X10'3 (0-0.9); MONOCYTES % (AUTO) 6.9 % (2-12); NEUTROPHILS # (AUTO) 3.6 X10'3 (1.8-7.7); PRE OP HEMOGLOBIN 14.7 g/dL (12.0-16.0); PRE OP PLATELET COUNT 303 X10'3 (140-440); RED BLOOD COUNT 5.32 X10'6 (4.20-5.60); RED CELL DISTRIBUTION WIDTH 16.4 % (11.5-14.5)
[2021-07-09] VITALS (7 sets, daily range): BP systolic 111–132; BP diastolic 62–76
[~2021-07-09] VITALS: Ht 162.6 cm; Wt 57.3 kg
[~2021-07-09 05:21] MED LIST: NO HOME MEDS; ringers solution, lacted 1,000 ML IV SCH
[2021-07-09] MEDS ORDERED: cefazolin/dext.iso 2gm/50ml IV ONE (05:30)
[2021-07-09] MEDS ORDERED: famotidine 20mg tablet PO ONE (05:30)
[2021-07-09] MEDS ORDERED: BUPIVAcaine/PF 2.5 mg/ml (0.25%) 30ml vial ONE (06:54)
[2021-07-09] MEDS ORDERED: LIDOcaine 1% 30ml preserv. free vial ONE (06:59)
[2021-07-09] MEDS ORDERED: BUPIVAcaine/PF 2.5mg/ml (0.25%) 10ml vial ONE (07:00)
[2021-07-09] MEDS ORDERED: BUPIVACAINE liposomal/PF 13.3 MG/ML vial IM ONE (07:00)
[2021-07-09] MEDS ORDERED: fentaNYL/PF 50MCG/1 ML 2ML syringe ONE ×2 (07:17→09:33)
[2021-07-09] MEDS ORDERED: propofol inj 20 ML IV ONE (07:20)
[2021-07-09] MEDS ORDERED: LIDOcaine 2% (20mg/ml) 5ml vial ONE (07:20)
[2021-07-09] MEDS ORDERED: rocuronium 10mg/ml inj IV ONE ×2 (07:23→08:38)
[2021-07-09] MEDS ORDERED: ondansetron/PF 4mg/2ml inj ONE (07:23)
[2021-07-09] MEDS ORDERED: dexamethasone sod phosphate 4mg/ml inj. ONE (07:23)
[2021-07-09] MEDS ORDERED: glycopyrrolate 0.2mg/ml inj ONE (07:23)
[2021-07-09] MEDS ORDERED: neostigmine methylsulfate 1 MG/ML 10ml vial ONE (07:23)
[2021-07-09] MEDS ORDERED: labetalol 20mg/4ml (5mg/ml) syringe IV PRN (07:30)
[2021-07-09] MEDS ORDERED: morphine 4 MG/ML inj SYRINge IV PRN (07:30)
[2021-07-09] MEDS ORDERED: ondansetron/PF 4mg/2ml inj IV PRN (07:30)
[2021-07-09] MEDS ORDERED: morphine 2 MG/ML inj. syringe IV PRN (07:30)
[2021-07-09] MEDS ORDERED: fentaNYL/PF 50MCG/1 ML 2ML syringe IV PRN ×2 (07:30)
[2021-07-09] MEDS ORDERED: hydrALAZINE 20mg/ml inj. IV PRN (07:30)
[2021-07-09] MEDS ORDERED: ringers solution, lacted 1,000 ML IV SCH (07:30)
[2021-07-09] MEDS ORDERED: PHENYLephrine 10mg/ml 5ml injection IV ONE (07:34)
[2021-07-09] MEDS ORDERED: sevoflurane 250ml liquid IH ONE (07:34)
--- NOTE | 2021-07-09 09:42 | NUR ---
Received from OR via , accompanied by Anesthesiologist DR SMITH and report given by Anesthesiolgist. AWAKENS TO VOICE. VITALS STABLE. DRESSINGS DI. DESTINI PAIN. ABD SOFT.
[2021-07-09] MEDS ORDERED: oxyCODONE/APAP 5-325mg tablet PO PRN (09:45)
--- NOTE | 2021-07-09 11:02 | NUR ---
AWAKE AND ORIENTED. VITALS STABLE. DRESSINGS DI. DESTINI PAIN. HOME WITH HER SPOUSE AT THIS TIME.
== END 2021-07-09 11:02 | disposition home or self-care (01) ==
LOC: PAS 05:21
PROVIDERS: ATTEND Surgery
DX: K43.2 Incisional hernia without obstruction or gangrene (principal); Z87.440 Personal history of urinary (tract) infections; Z90.49 Acquired absence of other specified parts of digestive tract; Z98.890 Other specified postprocedural states; Z88.8 Allergy status to other drugs, medicaments and biological substances; Z87.891 Personal history of nicotine dependence; Z79.899 Other long term (current) drug therapy; Z20.822 Contact with and (suspected) exposure to COVID-19
CPT/HCPCS: 36415; 49654; 64488; 80053; 82948; 85025; 93005; C1781; C9290; J0690; J1100; J2370; J2405; J2704; J2710; J3010; J3490; J7030; J7120; U0003; U0005; Z7506; Z7508; Z7512; A4215; A4618

== ENCOUNTER 2024-08-10 06:58 | Day surgery (SDC) | payer MEDICARE, OTHER ==
[2024-08-08 15:27] LABS: BASOPHILS # (AUTO) 0.2 X10'3 (0-0.2); BASOPHILS % (AUTO) 1.1 % (0-1); EOSINOPHILS # (AUTO) 0.8 X10'3 (0-0.9); EOSINOPHILS % (AUTO) 5.5 % (0-6); LYMPHOCYTES # (AUTO) 3.5 X10'3 (1.1-4.8); MEAN CORPUSCULAR HEMOGLOBIN 29.4 PG (27.0-31.0); MEAN CORPUSCULAR HGB CONC 33.3 g/dL (33.0-36.5); MEAN CORPUSCULAR VOLUME 88.4 FL (78-98); MEAN PLATELET VOLUME 7.4 FL (7.4-10.4); MONOCYTES # (AUTO) 1.3 X10'3 (0-0.9); MONOCYTES % (AUTO) 9.5 % (2-12); NEUTROPHILS # (AUTO) 8.2 X10'3 (1.8-7.7); NEUTROPHILS % (AUTO) 58.9 % (42-75); PRE OP HEMATOCRIT 39.1 % (35.0-45.0); PRE OP PLATELET COUNT 441 X10'3 (140-440); RED BLOOD COUNT 4.42 X10'6 (4.20-5.60); RED CELL DISTRIBUTION WIDTH 12.7 % (11.5-14.5)
[2024-08-08 15:38] LABS: ALBUMIN 3.3 G/DL (3.4-5.0); ALBUMIN/GLOBULIN RATIO 0.7 (1.1-1.5); ALKALINE PHOSPHATASE 74 IU/L (46-116); BLOOD UREA NITROGEN 14 MG/DL (7-18); BUN/CREATININE RATIO 15.4 (10.0-20.0); CALCIUM 10.6 MG/DL (8.5-10.1); CHLORIDE 104 MMOL/L (99-107); CREATININE 0.91 MG/DL (0.40-0.90); PRE OP ALT 21 U/L (30-65); PRE OP ANION GAP 3 (8-16); PRE OP AST 14 U/L (10-37); PRE OP BILIRUB, TOTAL 0.3 MG/DL (0.0-1.0); PRE OP GLUCOSE 120 MG/DL (70-104); PRE OP POTASSIUM 4.4 MMOL/L (3.4-5.1); PRE OP SODIUM 140 MMOL/L (135-145); TOTAL CARBON DIOXIDE 32.9 MMOL/L (24-32); TOTAL PROTEIN 7.8 G/DL (6.4-8.2); eGFR 61 ML/MIN
[2024-08-10] VITALS (10 sets, daily range): BP systolic 97–129; BP diastolic 51–71; PULSE 90–110; RESP 15–17; TEMP 97.6; O2SAT 95–100
[~2024-08-10] VITALS: Ht 165.1 cm; Wt 59.6 kg
[~2024-08-10 06:58] MED LIST changes: +HYDR-3973 PO; -NO HOME MEDS; +ROSU5TAB51 PO; -ringers solution, lacted 1,000 ML IV SCH
[2024-08-10] MEDS ORDERED: labetalol 20mg/4ml (5mg/ml) syringe IV PRN (07:45)
[2024-08-10] MEDS ORDERED: meperidine/PF 25mg/ml syringe IV PRN ×3 (07:45)
[2024-08-10] MEDS ORDERED: ringers solution, lacted 1,000 ML IV SCH (07:45)
[2024-08-10] MEDS ORDERED: enalaprilat 1.25mg/ml 2ml vial IV PRN (07:45)
[2024-08-10] MEDS ORDERED: morphine 2 MG/ML inj. syringe IV PRN (07:45)
[2024-08-10] MEDS ORDERED: proCHLORperazine 10 MG/2 ml inj IV PRN (07:45)
[2024-08-10] MEDS ORDERED: morphine 4 MG/ML inj SYRINge IV PRN (07:45)
[2024-08-10] MEDS ORDERED: ondansetron/PF 4mg/2ml inj IV PRN (07:45)
[2024-08-10] MEDS: famotidine 20mg tablet PO ONE (07:55)
[2024-08-10] MEDS: ringers solution, lacted 1,000 ML IV SCH (07:55)
[2024-08-10] MEDS ORDERED: sevoflurane 250ml liquid IH ONE (09:12)
[2024-08-10] MEDS ORDERED: rocuronium 10mg/ml inj IV ONE (09:20)
[2024-08-10] MEDS ORDERED: midazolam 1 mg/ML 2ml injection ONE (09:20)
[2024-08-10] MEDS ORDERED: fentaNYL/PF 50MCG/1 ML 2ML syringe ONE (09:20)
[2024-08-10] MEDS ORDERED: LIDOcaine 2% (20mg/ml) 5ml vial ONE (09:36)
[2024-08-10] MEDS ORDERED: propofol inj 20 ML IV ONE (09:36)
[2024-08-10] MEDS ORDERED: ondansetron/PF 4mg/2ml inj ONE (10:05)
== END 2024-08-10 11:30 | disposition home or self-care (01) ==
LOC: PAS 06:58
PROVIDERS: ATTEND Internal Medicine Critical Care Medicine
DX: R91.8 Other nonspecific abnormal finding of lung field (principal); E78.5 Hyperlipidemia, unspecified; J43.9 Emphysema, unspecified; Z87.891 Personal history of nicotine dependence; Z98.890 Other specified postprocedural states; Z88.8 Allergy status to other drugs, medicaments and biological substances; Z79.899 Other long term (current) drug therapy; Z90.49 Acquired absence of other specified parts of digestive tract
CPT/HCPCS: 31627; 31628; 31629; 31653; 36415; 71250; 80053; 82948; 85025; 87015; 87070; 87116; 87206; 93005; 94760; A4618; J1100; J2003; J2250; J2405; J2704; J2710; J3010; J3490; J7120; Z7506; Z7508; Z7512; Z7610; 31622; 31624; 31625; 31626; 31654

== ENCOUNTER 2024-09-03 14:49 | Inpatient (IN) | payer MEDICARE, OTHER ==
[~2024-09-03] VITALS: Ht 165.1 cm; Wt 55.3 kg
[2024-09-03] MEDS: normal saline 1000ML IV soln IVB ONE (15:36)
[2024-09-03 15:48] LABS: BASOPHILS # (AUTO) 0.1 X10'3 (0-0.2); BASOPHILS % (AUTO) 0.8 % (0-1); EOSINOPHILS # (AUTO) 0.4 X10'3 (0-0.9); EOSINOPHILS % (AUTO) 2.7 % (0-6); HEMATOCRIT 35.7 % (35.0-45.0); HEMOGLOBIN 11.4 g/dl (12.0-16.0); LYMPHOCYTES # (AUTO) 1.1 X10'3 (1.1-4.8); LYMPHOCYTES % (AUTO) 7.2 % (21-51); MEAN CORPUSCULAR HEMOGLOBIN 27.3 PG (27.0-31.0); MEAN CORPUSCULAR HGB CONC 32.1 g/dL (33.0-36.5); MEAN PLATELET VOLUME 7.1 FL (7.4-10.4); MONOCYTES # (AUTO) 1.2 X10'3 (0-0.9); MONOCYTES % (AUTO) 7.8 % (2-12); NEUTROPHILS # (AUTO) 12.2 X10'3 (1.8-7.7); NEUTROPHILS % (AUTO) 81.5 % (42-75); PLATELET COUNT 583 X10'3 (140-440); RED CELL DISTRIBUTION WIDTH 12.9 % (11.5-14.5); WHITE BLOOD COUNT 14.9 X10'3 (4.5-11.0)
[2024-09-03 16:07] LABS: ALANINE AMINOTRANSFERASE 29 U/L (12-78); ALBUMIN 2.5 G/DL (3.4-5.0); ALBUMIN/GLOBULIN RATIO 0.5 (1.1-1.5); ALKALINE PHOSPHATASE 130 IU/L (46-116); ANION GAP 11 (8-16); ASPARTATE AMINO TRANSFERASE 20 U/L (10-37); BILIRUBIN,TOTAL 0.5 MG/DL (0.1-1.0); BLOOD UREA NITROGEN 16 MG/DL (7-18); BUN/CREATININE RATIO 18.2 (10.0-20.0); CALCIUM 9.9 MG/DL (8.5-10.1); CHLORIDE 98 MMOL/L (99-107); CREATININE 0.88 MG/DL (0.40-0.90); GLUCOSE 131 MG/DL (70-104); POTASSIUM 4.1 MMOL/L (3.5-5.1); SODIUM 136 MMOL/L (135-145); TOTAL CARBON DIOXIDE 27.2 MMOL/L (24-32); TOTAL PROTEIN 7.7 G/DL (6.4-8.2); eCRCL 53 ML/MIN; eGFR 64 ML/MIN
[2024-09-03 16:09] LABS: D-DIMER 8.11 MG/L FEU (0-0.50)
[2024-09-03 16:17] LABS: PRO BRAIN NATRIURETIC PEPTIDE 159 PG/ML (0-125)
[2024-09-03] MEDS ORDERED: iohexol 350MG/ML 100ml bottle IV ONE (16:20)
[2024-09-03] MEDS ORDERED: AMOX-580 PO (17:32)
[2024-09-03] MEDS: piperacillin/tazo 3.375gm/50ml 50 ML IV ONE (17:57)
[2024-09-03] MEDS ORDERED: magnesium Cl slow-release 64mg tablet PO PRN (20:00)
[2024-09-03] MEDS: K and/or MAG REPLACEMENT MC SCH (20:00)
[2024-09-03] MEDS ORDERED: magnesium sulf-water 4G/100mL 100 ML IV PRN (20:00)
[2024-09-03] MEDS ORDERED: magnesium sulf-water 2g/50mL 50 ML IV PRN (20:00)
[2024-09-03] MEDS ORDERED: mag hydrox/Alum hydrox/simeth 30ml oral suspension PO PRN (20:00)
[2024-09-03] MEDS ORDERED: potassium Cl 40MEQ/1/2NS 520ml 520 ML IV PRN (20:00)
[2024-09-03] MEDS ORDERED: potassium Cl 20 mEq SR tablet PO PRN ×2 (20:00)
[2024-09-03] MEDS ORDERED: acetaminophen 325mg tablet PO PRN (20:00)
[2024-09-03] MEDS ORDERED: ipratropium/albuterol 3ml nebule NEB PRN (22:40)
[2024-09-03] MEDS: ipratropium/albuterol 3ml nebule NEB SCH (23:00)
[2024-09-03] MEDS: normal saline 1000ml 1,000 ML IV SCH (23:29)
[2024-09-03] MEDS: azithromycin 250mg tablet PO ONE (23:29)
[2024-09-03 23:30] LABS: HEMOGLOBIN A1C 6.4 % (4.5-6.2)
[2024-09-03 23:57] VITALS: PULSE 103; RESP 18; O2SAT 95
[2024-09-04] VITALS (16 sets, daily range): BP systolic 88–150; BP diastolic 44–72; PULSE 63–105; RESP 14–21; TEMP 96.9–98.3; O2SAT 92–98
[2024-09-04 00:05] LABS: % IRON SATURATION 13 % (11-46); IRON 17 UG/DL (49-151); TOTAL IRON BINDING CAPACITY 128 UG/DL (259-388)
[2024-09-04] MEDS: magnesium hydroxide 30ml (MOM) UD suspension PO PRN (01:01)
[2024-09-04] MEDS: HYDROcodone/acetaminophen 10/325mg tab PO PRN (01:01)
[2024-09-04] MEDS: piperacillin/tazo 3.375gm/50ml 50 ML IV SCH (01:27)
[2024-09-04 07:52] LABS: BASOPHILS # (AUTO) 0.1 X10'3 (0-0.2); BASOPHILS % (AUTO) 0.6 % (0-1); EOSINOPHILS # (AUTO) 0.5 X10'3 (0-0.9); EOSINOPHILS % (AUTO) 4.2 % (0-6); HEMOGLOBIN 10.1 g/dl (12.0-16.0); MEAN CORPUSCULAR HEMOGLOBIN 27.8 PG (27.0-31.0); MEAN CORPUSCULAR HGB CONC 32.5 g/dL (33.0-36.5); MEAN CORPUSCULAR VOLUME 85.4 FL (78-98); MEAN PLATELET VOLUME 7.1 FL (7.4-10.4); MONOCYTES # (AUTO) 1.4 X10'3 (0-0.9); MONOCYTES % (AUTO) 11.5 % (2-12); NEUTROPHILS # (AUTO) 9.2 X10'3 (1.8-7.7); NEUTROPHILS % (AUTO) 75.7 % (42-75); PLATELET COUNT 519 X10'3 (140-440); RED BLOOD COUNT 3.63 X10'6 (4.20-5.60); RED CELL DISTRIBUTION WIDTH 13.4 % (11.5-14.5); WHITE BLOOD COUNT 12.2 X10'3 (4.5-11.0)
[2024-09-04 08:15] LABS: ALANINE AMINOTRANSFERASE 22 U/L (12-78); ALBUMIN/GLOBULIN RATIO 0.4 (1.1-1.5); ALKALINE PHOSPHATASE 110 IU/L (46-116); ANION GAP 7 (8-16); ASPARTATE AMINO TRANSFERASE 17 U/L (10-37); BILIRUBIN,TOTAL 0.5 MG/DL (0.1-1.0); BLOOD UREA NITROGEN 17 MG/DL (7-18); CHLORIDE 103 MMOL/L (99-107); CREATININE 0.85 MG/DL (0.40-0.90); GLUCOSE 94 MG/DL (70-104); MAGNESIUM 2.3 MG/DL (1.5-2.4); POTASSIUM 4.5 MMOL/L (3.5-5.1); SODIUM 136 MMOL/L (135-145); TOTAL PROTEIN 6.5 G/DL (6.4-8.2); eCRCL 55 ML/MIN; eGFR 66 ML/MIN
[2024-09-04] MEDS: pantoprazole 40mg Tablet.DR PO SCH (09:27)
[2024-09-04] MEDS: lactobacillus rhamnosus 10,000 MMU CELLS/CAPSULE PO SCH (09:27)
[2024-09-04] MEDS: ondansetron/PF 4mg/2ml inj IV PRN (09:32)
[2024-09-04] MEDS: atorvastatin 20mg tablet PO SCH (20:02)
[2024-09-05] VITALS (9 sets, daily range): BP systolic 86–112; BP diastolic 47–54; PULSE 76–94; RESP 14–20; TEMP 97.3–98.1; O2SAT 93–98
[2024-09-05 08:10] LABS: BASOPHILS # (AUTO) 0.1 X10'3 (0-0.2); BASOPHILS % (AUTO) 0.7 % (0-1); EOSINOPHILS # (AUTO) 0.5 X10'3 (0-0.9); HEMATOCRIT 29.2 % (35.0-45.0); HEMOGLOBIN 9.5 g/dl (12.0-16.0); LYMPHOCYTES # (AUTO) 0.7 X10'3 (1.1-4.8); LYMPHOCYTES % (AUTO) 5.9 % (21-51); MEAN CORPUSCULAR HEMOGLOBIN 27.5 PG (27.0-31.0); MEAN CORPUSCULAR HGB CONC 32.4 g/dL (33.0-36.5); MEAN CORPUSCULAR VOLUME 84.8 FL (78-98); MEAN PLATELET VOLUME 6.9 FL (7.4-10.4); MONOCYTES # (AUTO) 0.9 X10'3 (0-0.9); MONOCYTES % (AUTO) 7.9 % (2-12); NEUTROPHILS # (AUTO) 9.2 X10'3 (1.8-7.7); NEUTROPHILS % (AUTO) 81.5 % (42-75); PLATELET COUNT 466 X10'3 (140-440); RED BLOOD COUNT 3.44 X10'6 (4.20-5.60); RED CELL DISTRIBUTION WIDTH 13.3 % (11.5-14.5); WHITE BLOOD COUNT 11.2 X10'3 (4.5-11.0)
[2024-09-05 08:40] LABS: ALANINE AMINOTRANSFERASE 22 U/L (12-78); ALBUMIN 1.9 G/DL (3.4-5.0); ALBUMIN/GLOBULIN RATIO 0.4 (1.1-1.5); ALKALINE PHOSPHATASE 103 IU/L (46-116); ANION GAP 8 (8-16); ASPARTATE AMINO TRANSFERASE 18 U/L (10-37); BILIRUBIN,TOTAL 0.5 MG/DL (0.1-1.0); BLOOD UREA NITROGEN 14 MG/DL (7-18); BUN/CREATININE RATIO 16.5 (10.0-20.0); CALCIUM 8.9 MG/DL (8.5-10.1); CHLORIDE 102 MMOL/L (99-107); CREATININE 0.85 MG/DL (0.40-0.90); GLUCOSE 101 MG/DL (70-104); MAGNESIUM 2.3 MG/DL (1.5-2.4); POTASSIUM 4.3 MMOL/L (3.5-5.1); SODIUM 135 MMOL/L (135-145); TOTAL CARBON DIOXIDE 24.9 MMOL/L (24-32); TOTAL PROTEIN 6.4 G/DL (6.4-8.2); eCRCL 55 ML/MIN; eGFR 66 ML/MIN
[2024-09-05] MEDS: lactose-reduced food (Ensure Enlive) - 237ml bottle PO SCH (17:30)
[2024-09-06 01:11] VITALS: RESP 16; O2SAT 93
[2024-09-06 02:00] VITALS: BP 102/51; PULSE 83; RESP 16; TEMP 97.8; O2SAT 96
[2024-09-06 06:00] VITALS: BP 111/53; PULSE 86; RESP 19; TEMP 97.5; O2SAT 96
[2024-09-06 07:26] LABS: BASOPHILS # (AUTO) 0.1 X10'3 (0-0.2); BASOPHILS % (AUTO) 0.6 % (0-1); EOSINOPHILS # (AUTO) 0.5 X10'3 (0-0.9); EOSINOPHILS % (AUTO) 3.9 % (0-6); HEMATOCRIT 32.3 % (35.0-45.0); HEMOGLOBIN 10.5 g/dl (12.0-16.0); LYMPHOCYTES # (AUTO) 0.8 X10'3 (1.1-4.8); LYMPHOCYTES % (AUTO) 6.5 % (21-51); MEAN CORPUSCULAR HEMOGLOBIN 27.9 PG (27.0-31.0); MEAN CORPUSCULAR HGB CONC 32.6 g/dL (33.0-36.5); MEAN CORPUSCULAR VOLUME 85.8 FL (78-98); MEAN PLATELET VOLUME 6.9 FL (7.4-10.4); NEUTROPHILS # (AUTO) 10.3 X10'3 (1.8-7.7); PLATELET COUNT 489 X10'3 (140-440); RED BLOOD COUNT 3.77 X10'6 (4.20-5.60); RED CELL DISTRIBUTION WIDTH 13.5 % (11.5-14.5); WHITE BLOOD COUNT 12.7 X10'3 (4.5-11.0)
[2024-09-06 07:54] LABS: ALANINE AMINOTRANSFERASE 23 U/L (12-78); ALBUMIN 2.2 G/DL (3.4-5.0); ALBUMIN/GLOBULIN RATIO 0.4 (1.1-1.5); ALKALINE PHOSPHATASE 121 IU/L (46-116); ANION GAP 8 (8-16); ASPARTATE AMINO TRANSFERASE 18 U/L (10-37); BILIRUBIN,TOTAL 0.4 MG/DL (0.1-1.0); BLOOD UREA NITROGEN 13 MG/DL (7-18); BUN/CREATININE RATIO 14.1 (10.0-20.0); CALCIUM 9.5 MG/DL (8.5-10.1); CHLORIDE 101 MMOL/L (99-107); CREATININE 0.92 MG/DL (0.40-0.90); GLUCOSE 101 MG/DL (70-104); MAGNESIUM 2.1 MG/DL (1.5-2.4); SODIUM 135 MMOL/L (135-145); TOTAL CARBON DIOXIDE 25.6 MMOL/L (24-32); TOTAL PROTEIN 7.2 G/DL (6.4-8.2); eCRCL 50 ML/MIN; eGFR 61 ML/MIN
[2024-09-06] MEDS ORDERED: LEVO-65 PO (10:33)
[2024-09-06] MEDS ORDERED: ALBU18HF2 IH (10:33)
[2024-09-06 14:10] VITALS: BP 106/54; PULSE 102; RESP 16; TEMP 97.8; O2SAT 94
== END 2024-09-06 16:19 | disposition home health service (06) | DRG 871 ==
LOC: ER 14:51 → ED HOLD 20:01 → EDBEDREQ 23:54 → PCU 3S 09-04 00:23
PROVIDERS: ADMIT Internal Medicine Sleep Medicine; ATTEND Internal Medicine
PROC: B32T1ZZ Computerized Tomography (CT Scan) of Left Pulmonary Artery using Low Osmolar Contrast (ICD-10-PCS; principal; 2024-09-03)
PROC: B3201ZZ Computerized Tomography (CT Scan) of Thoracic Aorta using Low Osmolar Contrast (ICD-10-PCS; 2024-09-03)
PROC: B32S1ZZ Computerized Tomography (CT Scan) of Right Pulmonary Artery using Low Osmolar Contrast (ICD-10-PCS; 2024-09-03)
DX: A41.59 Other Gram-negative sepsis (principal); J15.69 Pneumonia due to other Gram-negative bacteria; J15.9 Unspecified bacterial pneumonia; C34.91 Malignant neoplasm of unspecified part of right bronchus or lung; J90 Pleural effusion, not elsewhere classified; Z20.822 Contact with and (suspected) exposure to COVID-19; R73.9 Hyperglycemia, unspecified; D64.9 Anemia, unspecified; Z92.3 Personal history of irradiation; Z79.899 Other long term (current) drug therapy; Z88.1 Allergy status to other antibiotic agents
CPT/HCPCS: 36415; 71045; 71275; 80053; 82728; 82948; 83036; 83540; 83550; 83605; 83735; 83880; 84145; 84484; 85025; 85379; 85651; 87040; 87081; 87502; 87503; 87811; 93005; 94640; 94760; 96365; 97116; 97161; 97530; 99285; A4615; A6258; G0378; J2405; J2543; J7030; Q9967